=== PATIENT | male | born 1955 | race Caucasian/White ===

== ENCOUNTER 2017-06-17 10:34 | Inpatient (IN) | payer OTHER ==
[~2017-06-17] VITALS: Ht 185.4 cm; Wt 100.7 kg
[~2017-06-17 10:34] MED LIST: ALBUTEROL; ALPRAZOLAM0.25 MG PO; APAP/HYDROCODON1 T13 PO; ASPIR 8181 MG PO; ASTRAZENECA PO; ATIVAN; ATIVAN0.5 M1 PO; CARDURA1 MG PO; CARDURA2 MG PO; CLONAZEPAM0.5 MG PO; COL100 PO; COLACE100 MG PO; CYCLOBENZAPRINE5 M2 PO; CYCLOBENZAPRINE5 MG PO; ENALAPRIL20 M1 PO; FLOMAX0.4 MG PO; FLOVENT HF0.11 MG/A1 INH; FLUOXETINE40 MG PO; GOOD SENSE ASPI81 M3 PO; IBUPROFEN800 MG PO; LIPITOR40 MG PO; LOPRESSOR50 M1 PO; METOPROLOL TART25 M1 PO; MOTRIN800 MG PO; NEU300 PO; NITROSTAT0.4 MG SL; NORCO1 TA2 PO; PROPRANOLOL; PROPRANOLOL HCL20 MG PO; PROZ20 PO; ROB750 PO; SYMBICORT1 AE2 INH; VENTOLIN H0.09 MG/A1 INH; VIC PO; ZES10 PO
[2017-06-17 11:38] LABS: PLATELET COUNT 207 x10^3mcL (130-400); RED CELL DISTRIBUTION WIDTH 13.9 % (11.5-14.5)
[2017-06-17 11:49] LABS: CALCIUM 8.3 mg/dL (8.5-10.1); CARBON DIOXIDE 25.5 mmol/L (21-32); CHLORIDE SERUM 98 mmol/L (98-107); CREATININE SERUM 1.2 mg/dL (0.7-1.3); GFR1 > 60 mL/min; GLUCOSE SERUM 161 mg/dL (74-106); POTASSIUM SERUM 3.3 mmol/L (3.5-5.1); SODIUM SERUM 131 mmol/L (136-145)
[2017-06-17 11:51] LABS: ALBUMIN 2.9 g/dL (3.4-5.0); ALKALINE PHOSPHATASE 56 U/L (46-116); ALT/SGPT 45 U/L (16-63); AMYLASE 12 U/L (25-115); AST/SGOT 31 U/L (15-37); BILIRUBIN TOTAL 1.4 mg/dL (0.20-1.00); LIPASE 62 IU/L (73-393); TOTAL PROTEIN, SERUM 7.3 g/dL (6.4-8.2)
[2017-06-17 12:41] LABS: BAND NEUTROPHIL 2 % (0-10); BASOPHIL 0 % (0-2); MONOCYTE 8 % (0-7); SEGMENTED NEUTROPHILS 86 % (37-75)
[2017-06-17 12:42] LABS: PLATELET MORPHOLOGY PLATELETS NORMAL
[2017-06-17 14:41] LABS: UA SPECIFIC GRAVITY <=1.005 (1.005-1.035); microscopic required? YES; urine erythrocyte TRACE (NEGATIVE)
[2017-06-17] MEDS ORDERED: ZESTRIL5 MG PO (15:09)
[2017-06-17 16:42] VITALS: BP 153/87
[2017-06-17 16:45] VITALS: BP 153/87
[2017-06-17] MEDS ORDERED: TAMSULOSIN HYD0.4 M1 PO (17:34)
[2017-06-17] MEDS ORDERED: SEROQUEL100 MG PO (17:35)
[2017-06-17] MEDS ORDERED: FLUOXETINE40 MG PO (17:38)
[2017-06-17 18:21] LABS: MAGNESIUM 1.7 mg/dL (1.8-2.4); PHOSPHOROUS 1.8 mg/dL (2.5-4.9)
[2017-06-17 18:25] VITALS: BP 153/82
[2017-06-17 18:25] LABS: CHOLESTEROL/HDL RATIO 2.3
[2017-06-17 18:55] LABS: T3 TOTAL 0.41 ng/mL
[2017-06-17 19:02] LABS: FREE T4 1.11 ng/dL (0.76-1.46); T4(THYROXINE) 5.1 ug/dL (4.7-13.3)
[2017-06-17 20:51] VITALS: BP 107/69
[2017-06-18 04:56] LABS: AMPHETAMINE QUAL UR NONE DETECTED (NEG <=1000)
[2017-06-18 05:58] VITALS: BP 126/76
[2017-06-18 06:51] LABS: PLATELET COUNT 189 x10^3mcL (130-400); RED CELL DISTRIBUTION WIDTH 14.4 % (11.5-14.5)
[2017-06-18 07:02] LABS: CALCIUM 7.4 mg/dL (8.5-10.1); CARBON DIOXIDE 22.1 mmol/L (21-32); CHLORIDE SERUM 105 mmol/L (98-107); GFR1 > 60 mL/min; GLUCOSE SERUM 114 mg/dL (74-106); MAGNESIUM 1.7 mg/dL (1.8-2.4); PHOSPHOROUS 1.9 mg/dL (2.5-4.9); POTASSIUM SERUM 3.7 mmol/L (3.5-5.1); SODIUM SERUM 137 mmol/L (136-145)
[2017-06-18 07:57] LABS: BAND NEUTROPHIL 3 % (0-10); MONOCYTE 9 % (0-7); SEGMENTED NEUTROPHILS 84 % (37-75); rbc morphology (normal/abnorm) NORMAL (NORMAL)
[2017-06-18 09:26] VITALS: BP 131/83
[2017-06-18 13:17] VITALS: BP 149/89
[2017-06-18 17:06] VITALS: BP 112/80
[2017-06-18 21:51] VITALS: BP 153/88
[2017-06-19 05:14] VITALS: BP 133/78
[2017-06-19 06:24] LABS: CALCIUM 7.8 mg/dL (8.5-10.1); CARBON DIOXIDE 21.9 mmol/L (21-32); CHLORIDE SERUM 108 mmol/L (98-107); CREATININE SERUM 0.9 mg/dL (0.7-1.3); GFR1 > 60 mL/min; GLUCOSE SERUM 109 mg/dL (74-106); PHOSPHOROUS 2.3 mg/dL (2.5-4.9); POTASSIUM SERUM 3.2 mmol/L (3.5-5.1); SODIUM SERUM 139 mmol/L (136-145)
[2017-06-19 08:02] LABS: PLATELET COUNT 197 x10^3mcL (130-400); RED CELL DISTRIBUTION WIDTH 14.2 % (11.5-14.5)
[2017-06-19 08:10] LABS: BASOPHIL % 0 % (0-2)
[2017-06-19 09:29] VITALS: BP 140/87
[2017-06-19 13:34] VITALS: BP 124/81
[2017-06-19 17:12] VITALS: BP 145/92
[2017-06-19 22:05] VITALS: BP 143/86
[2017-06-20] VITALS (7 sets, daily range): BP systolic 113–161; BP diastolic 55–91
[2017-06-20 06:27] LABS: CALCIUM 8.1 mg/dL (8.5-10.1); CARBON DIOXIDE 21.3 mmol/L (21-32); CHLORIDE SERUM 105 mmol/L (98-107); CREATININE SERUM 0.9 mg/dL (0.7-1.3); GFR1 > 60 mL/min; GLUCOSE SERUM 114 mg/dL (74-106); MAGNESIUM 1.7 mg/dL (1.8-2.4); PHOSPHOROUS 3.4 mg/dL (2.5-4.9); POTASSIUM SERUM 3.2 mmol/L (3.5-5.1); SODIUM SERUM 137 mmol/L (136-145)
[2017-06-20 06:32] LABS: BASOPHIL % 0.3 % (0-2); PLATELET COUNT 225 x10^3mcL (130-400); RED CELL DISTRIBUTION WIDTH 14.4 % (11.5-14.5)
[2017-06-21 00:14] VITALS: BP 130/75
[2017-06-21 05:21] VITALS: BP 152/91
[2017-06-21 06:18] LABS: ALKALINE PHOSPHATASE 59 U/L (46-116); ALT/SGPT 142 U/L (16-63); AST/SGOT 76 U/L (15-37); BILIRUBIN TOTAL 0.6 mg/dL (0.20-1.00); CARBON DIOXIDE 25.6 mmol/L (21-32); CHLORIDE SERUM 106 mmol/L (98-107); CREATININE SERUM 0.9 mg/dL (0.7-1.3); GFR1 > 60 mL/min; GLUCOSE SERUM 107 mg/dL (74-106); MAGNESIUM 1.9 mg/dL (1.8-2.4); PHOSPHOROUS 3.8 mg/dL (2.5-4.9); POTASSIUM SERUM 3.3 mmol/L (3.5-5.1); SODIUM SERUM 139 mmol/L (136-145); TOTAL PROTEIN, SERUM 6.2 g/dL (6.4-8.2)
[2017-06-21 06:19] LABS: ALBUMIN 2.3 g/dL (3.4-5.0)
[2017-06-21 06:32] LABS: BASOPHIL % 0.4 % (0-2); PLATELET COUNT 258 x10^3mcL (130-400); RED CELL DISTRIBUTION WIDTH 14.2 % (11.5-14.5)
[2017-06-21 09:31] VITALS: BP 145/88
[2017-06-21] MEDS ORDERED: LEVAQUIN750 MG PO (13:48)
[2017-06-21] MEDS ORDERED: CLINDAMYCIN HC300 MG PO (13:49)
[2017-06-21] MEDS ORDERED: LAC PO (13:50)
[2017-06-21] MEDS ORDERED: THERA TABS1 TAB PO (13:51)
[2017-06-21] MEDS ORDERED: ROBDML PO (13:53)
[2017-06-21] MEDS ORDERED: SERO100 PO (13:58)
[2017-06-21] MEDS ORDERED: SIMETHICONE80 MG CH (13:58)
[2017-06-21 14:00] VITALS: BP 100/41; BP 150/92
== END 2017-06-21 16:35 | disposition home or self-care (01) | DRG 247 ==
LOC: ED 10:34 → DU 15:09
PROVIDERS: Emergency Medicine; Family Medicine; ADMIT Family Medicine
DX: K56.7 Ileus, unspecified (principal); N17.0 Acute kidney failure with tubular necrosis; J69.0 Pneumonitis due to inhalation of food and vomit; E44.0 Moderate protein-calorie malnutrition; E87.1 Hypo-osmolality and hyponatremia; E83.39 Other disorders of phosphorus metabolism; K76.0 Fatty (change of) liver, not elsewhere classified; E83.51 Hypocalcemia; I10 Essential (primary) hypertension; F32.9 Major depressive disorder, single episode, unspecified; J44.9 Chronic obstructive pulmonary disease, unspecified; B18.2 Chronic viral hepatitis C; D64.9 Anemia, unspecified; R80.9 Proteinuria, unspecified; E87.6 Hypokalemia; G89.29 Other chronic pain; M54.9 Dorsalgia, unspecified; Z87.891 Personal history of nicotine dependence; Z88.0 Allergy status to penicillin; Z83.3 Family history of diabetes mellitus; Z82.49 Family history of ischemic heart disease and other diseases of the circulatory system; Z68.29 Body mass index [BMI] 29.0-29.9, adult
CPT/HCPCS: 36600; 82962; 83880; 84439; 94150; J1885; J1956; J2405; J3475; J3490; J7030; J7620; Q0092; Q9967

== ENCOUNTER 2018-06-17 16:07 | Observation (INO) | payer OTHER ==
[~2018-06-17] VITALS: Ht 185.4 cm; Wt 91.2 kg
[~2018-06-17 16:07] MED LIST changes: +CLINDAMYCIN HC300 MG PO; +LAC PO; +LEVAQUIN750 MG PO; +ROBDML PO; +SERO100 PO; +SEROQUEL100 MG PO; +SIMETHICONE80 MG CH; +TAMSULOSIN HYD0.4 M1 PO; +THERA TABS1 TAB PO; +ZESTRIL5 MG PO
[2018-06-17 16:14] VITALS: Ht 185.4 cm; Wt 91.2 kg
[2018-06-17 16:44] LABS: BASOPHIL % 0.5 % (0-2); PLATELET COUNT 261 x10^3mcL (130-400); RED CELL DISTRIBUTION WIDTH 13.7 % (11.5-14.5)
[2018-06-17 17:15] LABS: CALCIUM 8.8 mg/dL (8.5-10.1); CARBON DIOXIDE 25.8 mmol/L (21-32); CHLORIDE SERUM 102 mmol/L (98-107); CREATININE SERUM 1.3 mg/dL (0.7-1.3); GFR1 59 mL/min; GLUCOSE SERUM 114 mg/dL (74-106); POTASSIUM SERUM 4.9 mmol/L (3.5-5.1); SODIUM SERUM 136 mmol/L (136-145)
[2018-06-17 17:19] LABS: ALKALINE PHOSPHATASE 63 U/L (46-116); ALT/SGPT 33 U/L (16-63); AST/SGOT 24 U/L (15-37); BILIRUBIN TOTAL 0.5 mg/dL (0.20-1.00); TOTAL PROTEIN, SERUM 7.9 g/dL (6.4-8.2)
[2018-06-17 18:10] LABS: microscopic required? NO
[2018-06-17 18:39] LABS: urine erythrocyte NEGATIVE (NEGATIVE)
[2018-06-17 18:48] LABS: AMPHETAMINE QUAL UR NONE DETECTED (See below)
[2018-06-17 19:56] VITALS: BP 154/93
[2018-06-17 20:20] LABS: MAGNESIUM 1.8 mg/dL (1.8-2.4); PHOSPHOROUS 2.6 mg/dL (2.5-4.9)
[2018-06-17 20:21] LABS: CHOLESTEROL/HDL RATIO 2.6
[2018-06-17 20:29] LABS: T3 TOTAL 0.83 ng/mL
[2018-06-17 20:51] LABS: FREE T4 0.92 ng/dL (0.76-1.46); FREE THYROXINE INDEX 2.1 ug/dL (1.4-4.5); T4(THYROXINE) 6.2 ug/dL (4.7-13.3)
[2018-06-18 05:33] VITALS: BP 146/87
[2018-06-18 06:22] LABS: BASOPHIL % 0.6 % (0-2); PLATELET COUNT 235 x10^3mcL (130-400); RED CELL DISTRIBUTION WIDTH 13.9 % (11.5-14.5)
[2018-06-18 06:28] LABS: CALCIUM 8.2 mg/dL (8.5-10.1); CARBON DIOXIDE 26.3 mmol/L (21-32); CHLORIDE SERUM 104 mmol/L (98-107); GFR1 > 60 mL/min; GLUCOSE SERUM 88 mg/dL (74-106); POTASSIUM SERUM 4.2 mmol/L (3.5-5.1); SODIUM SERUM 137 mmol/L (136-145)
[2018-06-18 07:33] VITALS: BP 134/89
[2018-06-18 09:11] VITALS: BP 166/104
[2018-06-18 13:55] VITALS: BP 139/81
[2018-06-18 19:53] VITALS: BP 133/70
[2018-06-18 23:10] VITALS: BP 133/70
[2018-06-19 00:23] VITALS: BP 118/84
== END 2018-06-19 00:38 | DRG 817 ==
LOC: ED 16:07 → DU 18:25 → EDBEDREQSVC 18:26 → DU 19:19
PROVIDERS: Internal Medicine; Specialist
DX: T40.2X2A Poisoning by other opioids, intentional self-harm, initial encounter (principal); G92 Toxic encephalopathy; J44.9 Chronic obstructive pulmonary disease, unspecified; F32.9 Major depressive disorder, single episode, unspecified; F17.210 Nicotine dependence, cigarettes, uncomplicated; Z68.30 Body mass index [BMI] 30.0-30.9, adult; Y92.009 Unspecified place in unspecified non-institutional (private) residence as the place of occurrence of the external cause
CPT/HCPCS: 83880; 84439; G0378; G0480; J7030